=== PATIENT | male | born 2000 | race Two or more races ===

== ENCOUNTER 2022-02-28 18:23 | Emergency (ER) | payer OTHER ==
[~2022-02-28] VITALS: Ht 170.2 cm; Wt 73.5 kg
[2022-02-28] MEDS ORDERED: LEVETIRACETAM500 MG PO (18:42)
== END 2022-02-28 22:49 | disposition home or self-care (01) ==
LOC: ER 18:23
DX: K29.70 Gastritis, unspecified, without bleeding (principal); R51.9 Headache, unspecified; R56.9 Unspecified convulsions

== ENCOUNTER 2023-02-01 12:24 | Emergency (ER) | payer OTHER ==
[~2023-02-01] VITALS: Ht 170.2 cm; Wt 75.7 kg
[~2023-02-01 12:24] MED LIST: LEVETIRACETAM500 MG PO
[2023-02-01] MEDS ORDERED: LEVETIRACETAM750 MG PO (12:33)
[2023-02-01] MEDS ORDERED: LEVETIRACETAM1000 MG (12:33)
== END 2023-02-01 16:04 | disposition home or self-care (01) ==
LOC: ER 12:24
DX: G40.909 Epilepsy, unspecified, not intractable, without status epilepticus (principal)